=== PATIENT | male | born 1945 | race Caucasian/White ===

== ENCOUNTER 2017-09-15 08:49 | Outpatient (CLI) | payer MEDICARE, BC ==
[2017-09-15 10:26] LABS: #Basophils 0.1 thou/uL (0.0-0.2); #Eosinphils 0.1 thou/uL (0.0-0.7); #Monocytes 0.8 thou/uL (0.11-0.59); #Neutrophils 4.3 thou/uL (1.40-6.50); %Eosinophils 1.8 % (0.0-10.0); %Lymphocytes 27.3 % (21.0-51.0); %Monocytes 10.5 % (0.0-10.0); Hematocrit 52.2 % (42.0-52.0); Mean Platelet Volume 6.5 fL (7.4-10.4); Red Blood Cell (RBC) Count 5.94 mill/uL (4.70-6.10); White Blood Cell (WBC) Count 7.2 thou/uL (4.8-10.8)
[2017-09-15 10:42] LABS: ALT (SGPT) 15 U/L (8-55); AST (SGOT) 16 U/L (5-34); Alkaline Phosphatase 110 U/L (40-150); Anion Gap 14 mmol/L (10-20); BUN (Urea Nitrogen) 22 mg/dL (8.4-25.7); Bilirubin, Direct 0.2 mg/dL (0.1-0.3); Bilirubin, Total 0.5 mg/dL (0.2-1.2); Calc. Creatinine Clearance 0 mL/min (70-130); Calcium 9.6 mg/dL (7.8-10.44); Carbon Dioxide 22 mmol/L (23-31); Chloride 106 mmol/L (98-107); Estimated GFR-MDRD 51; Globulin 2.8 g/dL (2.4-3.5); Protein, Total 6.7 g/dL (5.8-8.1)
== END 2017-09-15 08:50 | disposition home or self-care (01) ==
LOC: LABBT 08:49
PROVIDERS: ATTEND Surgery
DX: Z01.818 Encounter for other preprocedural examination (principal); K80.20 Calculus of gallbladder without cholecystitis without obstruction
CPT/HCPCS: 80053; 80076; 85025; 93005; 93010

== ENCOUNTER 2017-09-17 06:01 | Day surgery (SDC) | payer MEDICARE, BC ==
[2017-09-15 09:18] VITALS: BMI 34.9
[2017-09-17] MEDS ORDERED: Levofloxacin 500 mg/D5W 100 ml Premix Bag ONE (06:33)
[2017-09-17] MEDS ORDERED: Lidocaine 2% w/Epinephrine 1:200K 20 ML VIAL ONE (06:45)
[2017-09-17] MEDS ORDERED: Bupivacaine 0.25% HCL 30 ML VIAL ONE (06:45)
[2017-09-17] MEDS ORDERED: Midazolam HCl 2 mg/2 ml Vial ONE (06:55)
[2017-09-17] MEDS ORDERED: Fentanyl 100 MCG/2 ML VIAL ONE ×2 (06:55→09:01)
[2017-09-17] MEDS ORDERED: Ondansetron HCl/PF 4 MG/2 ML Vial ONE (07:34)
[2017-09-17] MEDS ORDERED: Lidocaine 1% PF 5 ML VIAL ONE (07:34)
[2017-09-17] MEDS ORDERED: Ketorolac Tromethamine 30 MG/ML VIAL ONE (07:34)
[2017-09-17] MEDS ORDERED: Glycopyrrolate 0.2 MG/ML 5 ML SYRINGE ONE (07:34)
[2017-09-17] MEDS ORDERED: PHENYLEPHRINE-NS 100 MCG/ML 10 ML SYRINGE ONE (07:34)
[2017-09-17] MEDS ORDERED: Propofol 200 MG/20 ML VIAL ONE (07:34)
--- NOTE | 2017-09-17 08:42 | OP ---
DATE OF PROCEDURE: 09/17/2017 PREOPERATIVE DIAGNOSIS: Symptomatic cholelithiasis. SURGEON: Hiren Whitley M.D. PROCEDURE PERFORMED: Laparoscopic cholecystectomy. INDICATIONS: A 72-year-old male who has been having episodic right upper quadrant pain radiating to the back associated with nausea. Ultrasound showed cholelithiasis. FINDINGS: He had a large amount of visceral adipose making this difficult. The cystic duct was of small caliber. PROCEDURE: After informed consent was obtained, the patient was taken to the operating room and giv en general endotracheal anesthesia. He was placed in the supine position. His abdomen was prepped and draped in the usual fashion. Local anesthesia infiltrated subcutaneously and deep. A subumbili monika incision was performed. The subcu divided sharply. The fascia was grasped and two stay sutures of 0 Vicryl placed to either side of midline. Midline incised. Digital palpation revealed no loca l adhesions. A blunt 10/12 mm trocar inserted. Pneumoperitoneum was created to a pressure of 15 m mHg. A 0 degree laparoscope inserted. Under direct vision, three 5 mm ports placed subcostally. Th e gallbladder was grasped and advanced superiorly. The peritoneum lysed distally to dissect out the cystic duct and cystic artery and the critical view. The duct was triply ligated with Hemoclips an d divided. The artery triply ligated with Hemoclips and divided. The gallbladder was removed from its fossa utilizing electrocautery. The gallbladder was removed from the abdomen through the umbili monika port. Hemostasis assured with electrocautery. Trocars and retractors removed. The fascia clos ed with interrupted 0 Vicryl suture. Skin closed with interrupted 4-0 Rapide. Dermabond applied. The patient tolerated the procedure well and transferred to recovery in good condition. Sponge and needle count verified correct x2.
[2017-09-17] MEDS ORDERED: HYDROcodone/Acetaminophen 5/325 mg Tablet ONE (09:57)
== END 2017-09-17 10:30 | disposition home or self-care (01) ==
LOC: SDC 06:01
PROVIDERS: ATTEND Surgery
PROC: 0FT44ZZ Resection of Gallbladder, Percutaneous Endoscopic Approach (ICD-10-PCS; principal; 2017-09-17)
DX: K80.11 Calculus of gallbladder with chronic cholecystitis with obstruction (principal); E11.9 Type 2 diabetes mellitus without complications; E78.00 Pure hypercholesterolemia, unspecified; F41.9 Anxiety disorder, unspecified; I25.10 Atherosclerotic heart disease of native coronary artery without angina pectoris; I10 Essential (primary) hypertension; Z79.4 Long term (current) use of insulin; Z79.02 Long term (current) use of antithrombotics/antiplatelets; Z79.899 Other long term (current) drug therapy; Z88.6 Allergy status to analgesic agent; Z88.0 Allergy status to penicillin; Z97.14 Presence of artificial left leg (complete) (partial); Z95.1 Presence of aortocoronary bypass graft; Z90.49 Acquired absence of other specified parts of digestive tract; Z89.512 Acquired absence of left leg below knee; Z98.890 Other specified postprocedural states; Z87.891 Personal history of nicotine dependence; Z86.19 Personal history of other infectious and parasitic diseases
CPT/HCPCS: 88304; 96374; J1885; J1956; J2001; J2250; J2405; J2704; J3010; S0020

== ENCOUNTER 2018-06-07 10:12 | Emergency (ER) | payer MEDICARE, BC ==
[2018-06-07] MEDS ORDERED: Morphine 4 MG/ML VIAL ONE (10:21)
[2018-06-07] MEDS ORDERED: Ondansetron HCl/PF 4 MG/2 ML Vial ONE (10:21)
[2018-06-07 10:46] LABS: #Eosinphils 0.1 thou/uL (0.0-0.7); #Lymphocytes 1.9 thou/uL (1.20-3.40); #Monocytes 0.6 thou/uL (0.11-0.59); #Neutrophils 3.5 thou/uL (1.40-6.50); %Basophils 0.7 % (0.0-1.0); %Eosinophils 2.1 % (0.0-10.0); %Lymphocytes 29.9 % (21.0-51.0); %Monocytes 10.1 % (0.0-10.0); %Neutrophils 57.1 % (42.0-75.0); Hemoglobin 16.1 g/dL (14.0-18.0); Mean Corpuscular HGB CONC 35.4 g/dL (32.0-36.0); Mean Corpuscular Hemoglobin 30.8 pg (27.0-31.0); Mean Platelet Volume 6.5 fL (7.4-10.4); Platelet Count 184 thou/uL (130-400); RBC Distribution Width 12.4 % (11.5-14.5); Red Blood Cell (RBC) Count 5.21 mill/uL (4.70-6.10); White Blood Cell (WBC) Count 6.2 thou/uL (4.8-10.8)
[2018-06-07 10:59] LABS: Bilirubin Negative (Negative); Blood, Urine Negative (Negative); Glucose, Urine (Dipstick) Negative (Negative); Leukocyte Negative (Negative); Nitrite Negative (Negative); Protein, Urine (Dipstick) Negative (Neg-Trace); Urobilinogen 0.2 mg/dL (0.2-1.0)
[2018-06-07 11:07] LABS: Clarity CLEAR (Clear)
[2018-06-07 11:07] LABS: ALT (SGPT) 11 U/L (8-55); AST (SGOT) 15 U/L (5-34); Albumin 3.9 g/dL (3.4-4.8); Alkaline Phosphatase 108 U/L (40-150); Anion Gap 11 mmol/L (10-20); BUN (Urea Nitrogen) 14 mg/dL (8.4-25.7); Bilirubin, Total 0.5 mg/dL (0.2-1.2); Calc. Creatinine Clearance 0 mL/min (70-130); Carbon Dioxide 24 mmol/L (23-31); Chloride 107 mmol/L (98-107); Estimated GFR-MDRD 53; Globulin 2.9 g/dL (2.4-3.5); Glucose 148 mg/dL (83-110); Potassium 4.4 mmol/L (3.5-5.1); Protein, Total 6.8 g/dL (5.8-8.1); Sodium 138 mmol/L (136-145)
--- NOTE | 2018-06-07 12:22 | CT ---
CT ABDOMEN AND PELVIS NONCONTRAST: INDICATION: Abdominal pain. FINDINGS: There is abnormal mesenteric haziness of the central abdomen with associated enlarged lymph nodes. T his does approximate the body of the pancreas. There is a stippled calcific density at the region of the pancreatic head which may reside within the ductal system. Evidence of prior cholecystectomy. There is no urolithiasis or obstructive uropathy. Colonic diverticulosis is present. There is scatt ered vascular disease. Scarring and/or volume loss is present at the visualized lung bases. There i s scattered osseous degenerative change as well as demineralization. There is a small hiatal hernia. IMPRESSION: 1. Abnormal hazy mesentery with associated adenopathy. The haziness does approximate the pancreatic body. Primary considerations include mesenteric panniculitis or lymphomatous process. The possibil ity of associated pancreatitis is not excluded given the proximal to the pancreas. Correlate with pa ncreatic enzyme values. 2. There is punctate multifocal calcific density at the proximal aspect of the pancreas surrounded b y hypodensity which may, therefore, relate to ductal calculi. Gastroenterology consultation may prov e useful for further evaluation. 3. Colonic diverticulosis. POS: [facility]
== END 2018-06-07 13:21 | disposition home or self-care (01) ==
LOC: ERS 10:12
DX: R10.9 Unspecified abdominal pain (principal); R29.898 Other symptoms and signs involving the musculoskeletal system; I25.10 Atherosclerotic heart disease of native coronary artery without angina pectoris; E11.9 Type 2 diabetes mellitus without complications; E78.5 Hyperlipidemia, unspecified; I10 Essential (primary) hypertension; Z87.891 Personal history of nicotine dependence; Z79.899 Other long term (current) drug therapy
CPT/HCPCS: 74176; 80053; 81003; 83690; 85025; 96374; 96375; J2270; J2405

== ENCOUNTER 2018-06-17 08:12 | Outpatient (CLI) | payer MEDICARE, BC ==
--- NOTE | 2018-06-17 10:55 | MRI ---
MRI ABDOMEN WITH AND WITHOUT CONTRAST: Date: 06/17/18 HISTORY: Abnormal CT scan. COMPARISON: CT dated 06/07/18. FINDINGS: MRI abdomen and pelvis performed prior to and after the intravenous administration of contrast. 3D re ndering provided. There is mild hepatic steatosis with fat percentage of 6.9%. There is no intrahepatic or extrahepatic biliary dilatation. There is a diverticulum in the second po rtion of the duodenum, which gave the abnormal finding on the recent CT examination. No dilatation of the main pancreatic duct. No annular pancreas. No abnormal hyper or hypoenhancing mass in the pancre as. There is mild edema and adenopathy in the proximal small bowel mesentery, which is nonspecific and ma y be chronic in nature from chronic inflammation. Spleen is unremarkable. No adenopathy. Multiple bilateral nonenhancing T2 hyperintense renal foci. Background marrow signal of the spine is normal. No dilated loops of bowel. IMPRESSION: 1. Corresponding to the recent CT examination is a second portion of the duodenum diverticulum. No i ntrahepatic or extrahepatic biliary dilatation. No choledocholithiasis. 2. Abnormal inflammation and adenopathy of the proximal small bowel mesentery. Differential is uncha nged from the recent CT exam and includes chronic inflammation, lymphomatous involvement, and scleros ing mesenteritis. POS: [facility]
== END 2018-06-17 08:13 | disposition home or self-care (01) ==
LOC: MRI 08:12
PROVIDERS: ATTEND Internal Medicine Gastroenterology
DX: K21.9 Gastro-esophageal reflux disease without esophagitis (principal); F40.240 Claustrophobia; M54.9 Dorsalgia, unspecified; R59.0 Localized enlarged lymph nodes; R93.5 Abnormal findings on diagnostic imaging of other abdominal regions, including retroperitoneum; Z86.010 Personal history of colon polyps
CPT/HCPCS: 74183

== ENCOUNTER 2023-12-16 08:43 | Outpatient (CLI) | payer MEDICARE, BC ==
[2023-12-16] MEDS ORDERED: Iopamidol 370 76% 100 ML VIAL ONE (10:03)
== END 2023-12-16 08:44 | disposition home or self-care (01) ==
LOC: BICCT 08:43
PROVIDERS: ATTEND Family Medicine
DX: R59.9 Enlarged lymph nodes, unspecified (principal); E04.1 Nontoxic single thyroid nodule
CPT/HCPCS: 71260

== ENCOUNTER 2023-12-29 10:10 | Outpatient (CLI) | payer MEDICARE, BC ==
[2023-12-29] MEDS ORDERED: Iopamidol-370 76% 500 ML MDV (1 ML CHARGE) ONE (10:59)
== END 2023-12-29 10:11 | disposition home or self-care (01) ==
LOC: BICCT 10:10
PROVIDERS: ATTEND Family Medicine
DX: R59.0 Localized enlarged lymph nodes (principal); I70.0 Atherosclerosis of aorta; K57.10 Diverticulosis of small intestine without perforation or abscess without bleeding; M47.816 Spondylosis without myelopathy or radiculopathy, lumbar region
CPT/HCPCS: 74177

== ENCOUNTER → 2024-01-09 | Outpatient (CLI) | payer MEDICARE, BC | LOC: PET 08:00 | PROVIDERS: ATTEND Internal Medicine | DX: R59.0 Localized enlarged lymph nodes (principal); K11.8 Other diseases of salivary glands | CPT/HCPCS: 78815; A9552 ==

== ENCOUNTER → 2024-01-21 | Day surgery (SDC) | payer MEDICARE, BC ==
[~2024-01-21] MED LIST: GASTROGRAFIN 30 ML BOT ONE
[2024-01-21 08:17] LABS: #Basophils 0.1 thou/uL (0.0-0.2); #Monocytes 0.8 thou/uL (0.11-0.59); #Neutrophils 4.4 thou/uL (1.40-6.50); %Basophils 0.9 % (0.0-1.0); %Lymphocytes 28.5 % (21.0-51.0); %Monocytes 11.1 % (0.0-10.0); %Neutrophils 59.2 % (42.0-75.0); Hematocrit 48.9 % (42.0-52.0); Hemoglobin 16.4 g/dL (14.0-18.0); Mean Corpuscular HGB CONC 33.5 g/dL (32.0-36.0); Mean Corpuscular Hemoglobin 28.6 pg (27.0-31.0); Mean Corpuscular Volume 85.3 fl (78.0-98.0); Mean Platelet Volume 8.8 fL (7.4-10.4); Platelet Count 167 10x3/uL (130-400); RBC Distribution Width 13.1 % (11.5-14.5); Red Blood Cell (RBC) Count 5.73 mill/uL (4.70-6.10); White Blood Cell (WBC) Count 7.5 10x3/uL (4.8-10.8)
[2024-01-21 08:32] LABS: INR-International Normal Ratio 1.1; PTT 27.9 sec (22.9-36.1); Prothrombin Time 14.1 sec (12.0-14.7)
== END ==
LOC: CT 06:53
PROVIDERS: ATTEND Internal Medicine
PROC: 07BB3ZX Excision of Mesenteric Lymphatic, Percutaneous Approach, Diagnostic (ICD-10-PCS; principal; 2024-01-21)
DX: C82.13 Follicular lymphoma grade II, intra-abdominal lymph nodes (principal); R59.0 Localized enlarged lymph nodes; E11.9 Type 2 diabetes mellitus without complications; I10 Essential (primary) hypertension; I25.10 Atherosclerotic heart disease of native coronary artery without angina pectoris; E78.5 Hyperlipidemia, unspecified; Z88.0 Allergy status to penicillin; Z88.8 Allergy status to other drugs, medicaments and biological substances; Z87.891 Personal history of nicotine dependence
CPT/HCPCS: 49180; 77012; 85025; 85610; 85730; 88184; 88185; 88307; 88333; 88334; 88341; 88342; Q9963

== ENCOUNTER 2024-11-04 13:00 | Outpatient (CLI) | payer MEDICARE, BC | END 2024-11-04 13:01 | disposition home or self-care (01) | LOC: BICCT 13:00 | PROVIDERS: ATTEND Internal Medicine | DX: C82.91 Follicular lymphoma, unspecified, lymph nodes of head, face, and neck (principal); R59.0 Localized enlarged lymph nodes; R91.8 Other nonspecific abnormal finding of lung field; E04.2 Nontoxic multinodular goiter | CPT/HCPCS: 71260; 74177 ==

== ENCOUNTER 2024-11-05 11:11 | Emergency (ER) | payer MEDICARE, BC ==
[2024-11-05 11:50] LABS: #Basophils 0.15 10x3/uL (0.0-0.2); #Eosinophils Less than 0.03 10x3/uL (0.0-0.7); %Lymphocytes 7.2 % (21.0-51.0); %Monocytes 9.9 % (0.0-10.0); %Neutrophils 81.4 % (42.0-75.0); Hematocrit 41.6 % (42.0-52.0); Hemoglobin 13.2 g/dL (14.0-18.0); Mean Corpuscular HGB CONC 31.7 g/dL (32.0-36.0); Mean Corpuscular Hemoglobin 24.5 pg (27.0-31.0); Mean Corpuscular Volume 77.2 fL (78.0-98.0); Mean Platelet Volume 8.8 fL (7.4-10.4); Platelet Count 388 10x3/uL (130-400); RBC Distribution Width 15.5 % (11.5-14.5); Red Blood Cell (RBC) Count 5.39 mill/uL (4.70-6.10)
[2024-11-05 12:25] LABS: Troponin I Less than 0.010 ng/mL (< 0.028)
[2024-11-05 12:26] LABS: ALT (SGPT) 19 U/L (8-55); AST (SGOT) 37 U/L (5-34); Albumin 1.7 g/dL (3.4-4.8); Alkaline Phosphatase 211 U/L (40-110); Anion Gap 16 mmol/L (10-20); BUN (Urea Nitrogen) 14 mg/dL (8.4-25.7); Bilirubin, Total 0.6 mg/dL (0.2-1.2); Calc. Creatinine Clearance 0 mL/min (70-130); Calcium 8.9 mg/dL (7.8-10.44); Carbon Dioxide 24 mmol/L (23-31); Chloride 97 mmol/L (98-107); Estimated GFR 69; Globulin 4.8 g/dL (2.4-3.5); Glucose 201 mg/dL (83-110); Potassium 4.9 mmol/L (3.5-5.1); Protein, Total 6.5 g/dL (5.8-8.1); Sodium 132 mmol/L (136-145)
== END 2024-11-05 15:31 | disposition home or self-care (01) ==
LOC: ERS 11:11
DX: L03.115 Cellulitis of right lower limb (principal); E11.9 Type 2 diabetes mellitus without complications; I10 Essential (primary) hypertension; Z87.891 Personal history of nicotine dependence
CPT/HCPCS: 36415; 71045; 80053; 83880; 84484; 85025; 93005

== ENCOUNTER 2024-11-08 23:59 | Inpatient (IN) | payer MEDICARE, BC ==
[2024-11-09 00:35] LABS: #Basophils 0.12 10x3/uL (0.0-0.2); #Eosinophils Less than 0.03 10x3/uL (0.0-0.7); %Basophils 0.7 % (0.0-1.0); %Lymphocytes 6.4 % (21.0-51.0); %Monocytes 9.3 % (0.0-10.0); %Neutrophils 82.9 % (42.0-75.0); Hematocrit 36.2 % (42.0-52.0); Mean Corpuscular HGB CONC 33.1 g/dL (32.0-36.0); Mean Corpuscular Hemoglobin 24.4 pg (27.0-31.0); Mean Corpuscular Volume 73.6 fL (78.0-98.0); Mean Platelet Volume 8.9 fL (7.4-10.4); Platelet Count 346 10x3/uL (130-400); RBC Distribution Width 15.4 % (11.5-14.5); Red Blood Cell (RBC) Count 4.92 mill/uL (4.70-6.10)
[2024-11-09 00:41] LABS: ALT (SGPT) 14 U/L (8-55); AST (SGOT) 36 U/L (5-34); Albumin 1.6 g/dL (3.4-4.8); Alkaline Phosphatase 205 U/L (40-110); Anion Gap 18 mmol/L (10-20); BUN (Urea Nitrogen) 27 mg/dL (8.4-25.7); Bilirubin, Total 0.5 mg/dL (0.2-1.2); Calc. Creatinine Clearance 0 mL/min (70-130); Calcium 8.5 mg/dL (7.8-10.44); Carbon Dioxide 18 mmol/L (23-31); Chloride 95 mmol/L (98-107); Estimated GFR 48; Globulin 4.7 g/dL (2.4-3.5); Glucose 134 mg/dL (83-110); Potassium 5.2 mmol/L (3.5-5.1); Protein, Total 6.3 g/dL (5.8-8.1); Sodium 126 mmol/L (136-145)
[2024-11-09 01:01] LABS: Magnesium 2.3 mg/dL (1.6-2.6)
[2024-11-09 01:06] LABS: Troponin I Less than 0.010 ng/mL (< 0.028)
[2024-11-09 03:15] LABS: Bacteria/HPF None Seen HPF (None Seen); Bilirubin Negative (Negative); Blood, Urine Negative (Negative); CAUTI Indications for Culture Alt mental st,lethar; Clarity Clear (Clear); Glucose, Urine (Dipstick) Greater than 1000 mg/dL (Negative); Ketone, Urine Negative (Negative); Leukocyte Negative Leu/uL (Negative); Nitrite Negative (Negative); Protein, Urine (Dipstick) 10 mg/dL (Neg-Trace); RBC/HPF 0-3 HPF (0-3); Specific Gravity, Urine 1.009 (1.002-1.036); Squamous Epithelial 0-3 HPF (0-3); WBC/HPF 0-3 HPF (0-3); pH, Urine 5.5 (5.0-9.0)
[2024-11-09 03:21] LABS: Urine Culture Reflex No No
[2024-11-09] MEDS ORDERED: Sodium Chloride 0.9% 100 ML ONE (05:48)
[2024-11-09] MEDS ORDERED: cefTRIAXone (ROCEPHIN) 1 GM VIAL ONE (05:49)
[2024-11-09] MEDS ORDERED: Acetaminophen 325 MG TAB PO PRN (07:45)
[2024-11-09] MEDS ORDERED: Ondansetron PF 4 MG/2 ML Vial IVP PRN (07:45)
[2024-11-09] MEDS ORDERED: Ondansetron ODT 4 MG TAB SL PRN (07:45)
[2024-11-09] MEDS ORDERED: Dextrose 50% Abboject 50 ML SYRINGE SLOW IVP PRN (08:58)
[2024-11-09] MEDS ORDERED: Glucagon 1 MG/ML KIT IM PRN (08:58)
[2024-11-09] MEDS ORDERED: Insulin Regular, Human 100 UNIT/ML 10 ML VIAL SC PRN ×2 (08:58)
[2024-11-09] MEDS ORDERED: Dextrose 5% in Water 1,000 ML IV PRN (08:58)
[2024-11-09 09:28] VITALS: BMI 28.4
[2024-11-09 09:46] LABS: Anion Gap 15 mmol/L (10-20); BUN (Urea Nitrogen) 26 mg/dL (8.4-25.7); Calc. Creatinine Clearance 53 mL/min (70-130); Calcium 8.1 mg/dL (7.8-10.44); Carbon Dioxide 21 mmol/L (23-31); Chloride 99 mmol/L (98-107); Estimated GFR 52; Glucose 115 mg/dL (83-110); Potassium 4.8 mmol/L (3.5-5.1); Sodium 130 mmol/L (136-145)
[2024-11-09] MEDS: Sodium Chloride 0.9% 500 ML IV SCH (11:32)
[2024-11-09 11:35] VITALS: TEMP 97.9
[2024-11-09] MEDS: Clopidogrel Bisulfate 75 MG TAB PO SCH (13:05)
[2024-11-09 15:41] LABS: Anion Gap 13 mmol/L (10-20); BUN (Urea Nitrogen) 26 mg/dL (8.4-25.7); Calc. Creatinine Clearance 50 mL/min (70-130); Carbon Dioxide 20 mmol/L (23-31); Chloride 100 mmol/L (98-107); Estimated GFR 49; Glucose 133 mg/dL (83-110); Potassium 4.7 mmol/L (3.5-5.1); Sodium 128 mmol/L (136-145)
[2024-11-09 15:55] VITALS: BP 91/52
[2024-11-09] MEDS ORDERED: Megestrol Acetate 40 MG TAB PO SCH (21:00)
[2024-11-09] MEDS ORDERED: Gemfibrozil 600 MG TAB PO SCH (21:00)
[2024-11-10] MEDS ORDERED: Bisoprolol Fumarate 5 MG TAB PO SCH (09:00)
[2024-11-10] MEDS ORDERED: Dapagliflozin Propanediol 10 MG TAB PO SCH (09:00)
[2024-11-10] MEDS ORDERED: INSULIN DEGLUDEC 200 UNIT/ML SQ SCH (09:00)
[2024-11-10] MEDS ORDERED: ALPRAZolam 0.5 MG TAB PO SCH (09:00)
[2024-11-10] MEDS ORDERED: Non-Formulary Item 1 EACH (Bisoprolol Fumarate [Bisoprolol Fumarate] 10 MG Tablet) PO SCH (09:00)
[2024-11-10] MEDS ORDERED: Insulin Glargine 30 UNITS/0.3 ML VIAL SC SCH (09:00)
[2024-11-11 12:58] LABS: Anion Gap 16 mmol/L (10-20); BUN (Urea Nitrogen) 20 mg/dL (8.4-25.7); Calc. Creatinine Clearance 54 mL/min (70-130); Calcium 8.5 mg/dL (7.8-10.44); Carbon Dioxide 21 mmol/L (23-31); Chloride 98 mmol/L (98-107); Estimated GFR 54; Glucose 159 mg/dL (83-110); Potassium 4.9 mmol/L (3.5-5.1); Sodium 130 mmol/L (136-145)
== END 2024-11-09 18:22 | disposition home or self-care (01) | DRG 641 ==
LOC: ERS 23:59 → T4-B 11-09 06:10
PROVIDERS: ADMIT Internal Medicine; ATTEND Internal Medicine
DX: E87.1 Hypo-osmolality and hyponatremia (principal); C82.90 Follicular lymphoma, unspecified, unspecified site; L03.115 Cellulitis of right lower limb; E78.5 Hyperlipidemia, unspecified; I10 Essential (primary) hypertension; E11.9 Type 2 diabetes mellitus without complications; I25.10 Atherosclerotic heart disease of native coronary artery without angina pectoris; Z95.1 Presence of aortocoronary bypass graft; Z90.49 Acquired absence of other specified parts of digestive tract; Z87.891 Personal history of nicotine dependence; Z88.0 Allergy status to penicillin; Z88.8 Allergy status to other drugs, medicaments and biological substances; Z79.899 Other long term (current) drug therapy; Z79.02 Long term (current) use of antithrombotics/antiplatelets; Z79.2 Long term (current) use of antibiotics
CPT/HCPCS: 36415; 36416; 80048; 80053; 81001; 82533; 83605; 83615; 83735; 83930; 83935; 84300; 84443; 84484; 84550; 85025; 87040; 87428; 93005; 96361; 96374; J0696; J7030

== ENCOUNTER 2024-11-15 11:41 | Inpatient (IN) | payer MEDICARE, BC ==
[2024-11-15 12:59] LABS: #Basophils 0.12 10x3/uL (0.0-0.2); #Eosinophils Less than 0.03 10x3/uL (0.0-0.7); %Basophils 0.6 % (0.0-1.0); %Lymphocytes 3.3 % (21.0-51.0); %Monocytes 8.2 % (0.0-10.0); %Neutrophils 87.1 % (42.0-75.0); Hematocrit 33.7 % (42.0-52.0); Mean Corpuscular HGB CONC 32.6 g/dL (32.0-36.0); Mean Corpuscular Hemoglobin 24.3 pg (27.0-31.0); Mean Corpuscular Volume 74.6 fL (78.0-98.0); Mean Platelet Volume 8.6 fL (7.4-10.4); Platelet Count 327 10x3/uL (130-400); RBC Distribution Width 16.2 % (11.5-14.5); Red Blood Cell (RBC) Count 4.52 mill/uL (4.70-6.10)
[2024-11-15 13:56] LABS: ALT (SGPT) 15 U/L (8-55); AST (SGOT) 44 U/L (5-34); Albumin 1.4 g/dL (3.4-4.8); Alkaline Phosphatase 200 U/L (40-110); Anion Gap 15 mmol/L (10-20); BUN (Urea Nitrogen) 22 mg/dL (8.4-25.7); Bilirubin, Total 0.8 mg/dL (0.2-1.2); Calc. Creatinine Clearance 0 mL/min (70-130); Calcium 8.3 mg/dL (7.8-10.44); Carbon Dioxide 21 mmol/L (23-31); Chloride 98 mmol/L (98-107); Estimated GFR 63; Globulin 4.4 g/dL (2.4-3.5); Glucose 160 mg/dL (83-110); Magnesium 2.2 mg/dL (1.6-2.6); Protein, Total 5.8 g/dL (5.8-8.1); Sodium 129 mmol/L (136-145)
[2024-11-15] MEDS ORDERED: Ondansetron PF 4 MG/2 ML Vial IVP PRN (16:00)
[2024-11-15] MEDS ORDERED: Dextrose 50% Abboject 50 ML SYRINGE SLOW IVP PRN (16:00)
[2024-11-15] MEDS ORDERED: Glucagon 1 MG/ML KIT IM PRN (16:00)
[2024-11-15] MEDS ORDERED: Acetaminophen 325 MG TAB PO PRN (16:00)
[2024-11-15] MEDS ORDERED: Dextrose 5% in Water 1,000 ML IV PRN (16:00)
[2024-11-15] MEDS ORDERED: Bisacodyl 5 MG TAB PO PRN (16:00)
[2024-11-15] MEDS ORDERED: traMADol HCl 50 MG TAB PO PRN ×2 (16:00)
[2024-11-15] MEDS: Albumin 25% 25 GM (100 mL) BOT IVPB SCH ×2 (17:53→21:19)
[2024-11-15 18:22] VITALS: BMI 33.1
[2024-11-15] MEDS: Dronabinol 2.5 MG CAP PO SCH (18:30)
[2024-11-15] MEDS: Gemfibrozil 600 MG TAB PO SCH (21:19)
[2024-11-16] MEDS: Zolpidem Tartrate 5 MG TAB PO SCH ×2 (00:03→20:50)
[2024-11-16 05:34] LABS: Anion Gap 17 mmol/L (10-20); BUN (Urea Nitrogen) 18 mg/dL (8.4-25.7); Calc. Creatinine Clearance 77 mL/min (70-130); Calcium 8.4 mg/dL (7.8-10.44); Carbon Dioxide 17 mmol/L (23-31); Chloride 102 mmol/L (98-107); Estimated GFR 68; Glucose 124 mg/dL (83-110); Potassium 4.6 mmol/L (3.5-5.1); Sodium 131 mmol/L (136-145)
[2024-11-16 06:05] LABS: Hematocrit 28.7 % (42.0-52.0); Hemoglobin 9.5 g/dL (14.0-18.0); Mean Corpuscular HGB CONC 33.1 g/dL (32.0-36.0); Mean Corpuscular Hemoglobin 24.2 pg (27.0-31.0); Mean Corpuscular Volume 73.2 fL (78.0-98.0); Mean Platelet Volume 8.8 fL (7.4-10.4); Platelet Count 321 10x3/uL (130-400); RBC Distribution Width 16.2 % (11.5-14.5); Red Blood Cell (RBC) Count 3.92 mill/uL (4.70-6.10)
[2024-11-16 06:20] LABS: #Basophils 0.08 10x3/uL (0.0-0.2); #Eosinophils Less than 0.03 10x3/uL (0.0-0.7); %Basophils 0.5 % (0.0-1.0); %Lymphocytes 4.4 % (21.0-51.0); %Monocytes 8.7 % (0.0-10.0); %Neutrophils 85.5 % (42.0-75.0)
[2024-11-16 06:50] LABS: Band 14 % (5-11); Lymphocytes 1 % (21-51); Microcytosis SLIGHT = 6-15 cells HPF (0-5); Monocytes 8 % (0-10); Neutrophil 76 % (42-75); Platelet Adequacy Comment Platelets Normal; Polychromasia SLIGHT = 2-3 cells HPF (0-2)
[2024-11-16] MEDS ORDERED: Megestrol Acetate 40 MG TAB PO SCH (09:00)
[2024-11-16] MEDS: Sodium Bicarbonate Tab 325 MG TAB PO SCH (09:02)
[2024-11-16] MEDS: Megestrol Acetate 800 MG/20 ML UDCUP PO SCH (09:02)
[2024-11-16] MEDS: Rosuvastatin 10 MG TAB PO SCH (09:02)
[2024-11-16] MEDS: Cholecalciferol 1,000 UNITS (25 MCG) TAB PO SCH (09:03)
[2024-11-16] MEDS: CO Q-10 CAPSULE 100 MG PO SCH (09:03)
[2024-11-16] MEDS: Venlafaxine XR 37.5 MG CAP PO SCH (09:03)
[2024-11-16] MEDS: Enoxaparin 40 MG (0.4 mL) SYRINGE SC SCH (09:03)
[2024-11-16] MEDS: Dapagliflozin Propanediol 10 MG TAB PO SCH (09:04)
[2024-11-16] MEDS: ALPRAZolam 0.5 MG TAB PO SCH ×2 (09:05→20:51)
[2024-11-16 10:03] VITALS: BMI 33.1
[2024-11-16] MEDS ORDERED: Loperamide HCl 2 MG CAP PO PRN (16:28)
[2024-11-16] MEDS ORDERED: Electrolyte Replacement Protocol FS PRN ×2 (18:45→21:57)
[2024-11-16] MEDS: Mirtazapine 15 MG TAB PO SCH (20:50)
[2024-11-16] MEDS: Electrolyte Replacement Protocol 1 EACH FS ONE (21:58)
[2024-11-17 09:01] LABS: Hematocrit 29.7 % (42.0-52.0); Hemoglobin 9.8 g/dL (14.0-18.0); Mean Corpuscular Hemoglobin 24.2 pg (27.0-31.0); Mean Corpuscular Volume 73.3 fL (78.0-98.0); Mean Platelet Volume 8.5 fL (7.4-10.4); Platelet Count 283 10x3/uL (130-400); RBC Distribution Width 16.3 % (11.5-14.5); Red Blood Cell (RBC) Count 4.05 mill/uL (4.70-6.10)
[2024-11-17 09:07] LABS: ALT (SGPT) 12 U/L (8-55); AST (SGOT) 33 U/L (5-34); Albumin 2.3 g/dL (3.4-4.8); Alkaline Phosphatase 162 U/L (40-110); Anion Gap 16 mmol/L (10-20); BUN (Urea Nitrogen) 14 mg/dL (8.4-25.7); Bilirubin, Total 1.1 mg/dL (0.2-1.2); Calc. Creatinine Clearance 83 mL/min (70-130); Calcium 8.6 mg/dL (7.8-10.44); Carbon Dioxide 18 mmol/L (23-31); Chloride 102 mmol/L (98-107); Estimated GFR 75; Globulin 3.4 g/dL (2.4-3.5); Glucose 168 mg/dL (83-110); Iron Less than 7 ug/dL (65-175); Iron Binding Capacity, Total 94 mcg/dL (261-462); Potassium 4.1 mmol/L (3.5-5.1); Protein, Total 5.7 g/dL (5.8-8.1); Sodium 132 mmol/L (136-145)
[2024-11-17 09:29] LABS: Macrocytosis SLIGHT = 6-15 cells HPF (0-5); Platelet Adequacy Comment Platelets Normal; Polychromasia SLIGHT = 2-3 cells HPF (0-2)
[2024-11-17 09:32] LABS: #Eosinophils Less than 0.03 10x3/uL (0.0-0.7); %Basophils 0.7 % (0.0-1.0); %Lymphocytes 4.2 % (21.0-51.0); %Monocytes 11.8 % (0.0-10.0); %Neutrophils 82.6 % (42.0-75.0)
[2024-11-17] MEDS: Albumin 25% 25 GM (100 mL) BOT IVPB SCH ×2 (10:08→13:52)
[2024-11-17] MEDS: Sodium Ferric Gluconate 250 MG in Sodium Chloride 0.9% 250 ML 250 ML IVPB SCH (11:26)
[2024-11-17] MEDS: Sodium Bicarbonate Tab 325 MG TAB PO SCH (13:52)
[2024-11-17] MEDS: Insulin Lispro 100 UNIT/ML 10 ML VIAL SC PRN (16:56)
[2024-11-18] MEDS ORDERED: Bisoprolol Fumarate 5 MG TAB PO SCH ×2 (07:45→09:00)
[2024-11-18 08:28] VITALS: BP 168/68; TEMP 98.3
== END 2024-11-18 08:10 | disposition home or self-care (01) | DRG 640 ==
LOC: ERS 11:41 → MSONC 16:46 → OBSVTOIN 11-16 16:21
PROVIDERS: ADMIT Internal Medicine; ATTEND Internal Medicine
DX: E87.1 Hypo-osmolality and hyponatremia (principal); E43 Unspecified severe protein-calorie malnutrition; C82.90 Follicular lymphoma, unspecified, unspecified site; E87.20 Acidosis, unspecified; F41.9 Anxiety disorder, unspecified; E78.5 Hyperlipidemia, unspecified; E11.22 Type 2 diabetes mellitus with diabetic chronic kidney disease; I12.9 Hypertensive chronic kidney disease with stage 1 through stage 4 chronic kidney disease, or unspecified chronic kidney disease; E86.9 Volume depletion, unspecified; I25.10 Atherosclerotic heart disease of native coronary artery without angina pectoris; D63.1 Anemia in chronic kidney disease; E88.09 Other disorders of plasma-protein metabolism, not elsewhere classified; N18.30 Chronic kidney disease, stage 3 unspecified; Z88.0 Allergy status to penicillin; Z79.899 Other long term (current) drug therapy; Z90.49 Acquired absence of other specified parts of digestive tract
CPT/HCPCS: 36415; 36416; 71045; 78815; 80048; 80053; 82728; 83540; 83550; 83615; 83735; 83930; 83935; 84100; 84443; 84550; 85025; 93005; 96360; 96361; 96372; 96374; 96376; A9552; G0378; J1650; J1815; J2916; J7050; P9047; Q0167

== ENCOUNTER 2024-11-18 08:45 | Outpatient (CLI) | payer MEDICARE, BC | END 2024-11-18 08:46 | disposition home or self-care (01) | LOC: PET 08:45 | PROVIDERS: ATTEND Internal Medicine | DX: C82.91 Follicular lymphoma, unspecified, lymph nodes of head, face, and neck (principal); R59.0 Localized enlarged lymph nodes; K76.9 Liver disease, unspecified; M89.9 Disorder of bone, unspecified; Z79.899 Other long term (current) drug therapy | CPT/HCPCS: 78815; A9552; 80053 ==

== ENCOUNTER 2024-11-28 11:11 | Inpatient (IN) | payer MEDICARE, BC ==
[2024-11-28 13:05] LABS: Actual Bicarbonate (HCO3v) 15.5 mEq/L (22-28); Base Excess -6.3 mEq/L (-2.0 to +3.0); Chloride (VBG) 88 mmol/L (98-106); Hematocrit-VBG 32 % (42.0-52.0); Hemoglobin (Hb) 10.9 g/dL (12.6-17.4); Potassium (VBG) 4.19 mmol/L (3.70-5.30)
[2024-11-28 13:07] LABS: Calcium, Ionized (venous) 0.77 mmol/L (1.16-1.32); Sodium 118 mmol/L (133-146)
[2024-11-28 13:30] LABS: ALT (SGPT) 14 U/L (8-55); AST (SGOT) 51 U/L (5-34); Albumin 1.6 g/dL (3.4-4.8); Alkaline Phosphatase 377 U/L (40-110); Anion Gap 24 mmol/L (10-20); BUN (Urea Nitrogen) 110 mg/dL (8.4-25.7); Bilirubin, Total 1.1 mg/dL (0.2-1.2); Calc. Creatinine Clearance 0 mL/min (70-130); Calcium 7.8 mg/dL (7.8-10.44); Carbon Dioxide 16 mmol/L (23-31); Chloride 87 mmol/L (98-107); Estimated GFR 19; Globulin 4.3 g/dL (2.4-3.5); Glucose 204 mg/dL (83-110); Magnesium 2.3 mg/dL (1.6-2.6); Potassium 4.3 mmol/L (3.5-5.1); Protein, Total 5.9 g/dL (5.8-8.1); Sodium 123 mmol/L (136-145)
[2024-11-28 13:49] LABS: Hematocrit 28.7 % (42.0-52.0); Hemoglobin 9.2 g/dL (14.0-18.0); Mean Corpuscular HGB CONC 32.1 g/dL (32.0-36.0); Mean Corpuscular Hemoglobin 23.4 pg (27.0-31.0); Mean Corpuscular Volume 72.8 fL (78.0-98.0); Mean Platelet Volume 9.3 fL (7.4-10.4); Platelet Count 250 10x3/uL (130-400); RBC Distribution Width 18.9 % (11.5-14.5); Red Blood Cell (RBC) Count 3.94 mill/uL (4.70-6.10)
[2024-11-28 14:10] LABS: Band 7 % (5-11); Eosinophils 1 % (0-10); Hypochromia SLIGHT = 6-15 cells HPF (0-5); Microcytosis SLIGHT = 6-15 cells HPF (0-5); Monocytes 1 % (0-10); Neutrophil 90 % (42-75); Nucleated RBC (Manual Ct) 1 % (0); Platelet Adequacy Comment Platelets Normal; Polychromasia MODERATE = 3-4 cells HPF (0-2); Reactive Lymphocytes 1 % (0-10); Target Cells SLIGHT = 2-5 cells HPF (0-1)
[2024-11-28 14:11] LABS: Reflex for Review?? YES
[2024-11-28 15:29] LABS: Bacteria/HPF None Seen HPF (None Seen); Bilirubin Negative (Negative); Blood, Urine Negative (Negative); CAUTI Indications for Culture Pelvic or flank pain; Clarity Extra Turbid (Clear); Glucose, Urine (Dipstick) 300 mg/dL (Negative); Ketone, Urine Negative (Negative); Leukocyte 25 Leu/uL (Negative); Nitrite Negative (Negative); Protein, Urine (Dipstick) 50 mg/dL (Neg-Trace); Specific Gravity, Urine 1.018 (1.002-1.036); Urobilinogen 3 mg/dL (Less than 2)
[2024-11-28 15:36] LABS: Urine Culture Reflex Yes Yes
[2024-11-28] MEDS ORDERED: Acetaminophen 650 MG Suppository PR PRN (16:45)
[2024-11-28] MEDS ORDERED: Senokot S 8.6-50 MG TAB PO PRN (16:45)
[2024-11-28] MEDS ORDERED: Acetaminophen 325 MG TAB PO PRN (16:45)
[2024-11-28] MEDS ORDERED: Bisacodyl 10 MG SUPP PR PRN (16:45)
[2024-11-28] MEDS ORDERED: Bisacodyl 5 MG TAB PO PRN (16:45)
[2024-11-28] MEDS ORDERED: Ondansetron PF 4 MG/2 ML Vial IVP PRN (16:45)
[2024-11-28] MEDS ORDERED: traMADol HCl 50 MG TAB PO PRN (17:38)
[2024-11-28] MEDS ORDERED: Albumin 25% 100 ML ONE (18:24)
[2024-11-28] MEDS: Albumin 25% 25 GM (100 mL) BOT IVPB SCH (18:31)
[2024-11-28] MEDS: Sodium Bicarbonate 150 MEQ in Dextrose 5% in Water 1,000 ML IV SCH (18:46)
[2024-11-28] MEDS: ALPRAZolam 0.5 MG TAB PO SCH (18:56)
[2024-11-28 19:41] LABS: CK (CPK) 21 U/L (30-200); Phosphorus 6.1 mg/dL (2.3-4.7); Uric Acid 8.8 mg/dL (3.5-7.2)
[2024-11-28 19:51] LABS: Creatinine, Urine 145.08 mg/dL (22-328)
[2024-11-28 19:52] LABS: Sodium, Urine Less than 20 mmol/L (Not Available); Urea Nitrogen, Random Urine 345 mg/dl
[2024-11-28] MEDS ORDERED: Heparin 5,000 UNITS/ML VIAL SC SCH (21:00)
[2024-11-28] MEDS: Famotidine/PF 20 mg/2ml Vial SLOW IVP SCH (21:35)
[2024-11-29 05:08] LABS: Hematocrit 27.6 % (42.0-52.0); Hemoglobin 8.9 g/dL (14.0-18.0); Mean Corpuscular HGB CONC 32.2 g/dL (32.0-36.0); Mean Corpuscular Hemoglobin 23.7 pg (27.0-31.0); Mean Corpuscular Volume 73.4 fL (78.0-98.0); Mean Platelet Volume 9.6 fL (7.4-10.4); Platelet Count 267 10x3/uL (130-400); RBC Distribution Width 19.2 % (11.5-14.5); Red Blood Cell (RBC) Count 3.76 mill/uL (4.70-6.10)
[2024-11-29 05:43] LABS: Anisocytosis SLIGHT = 6-15 cells HPF (0-5); Band 4 % (5-11); Burr Cells SLIGHT = 2-5 cells HPF (0-1); Hypochromia SLIGHT = 6-15 cells HPF (0-5); Microcytosis SLIGHT = 6-15 cells HPF (0-5); Neutrophil 95 % (42-75); Platelet Adequacy Comment Platelets Normal; Polychromasia SLIGHT = 2-3 cells HPF (0-2)
[2024-11-29 06:11] LABS: Anion Gap 22 mmol/L (10-20); BUN (Urea Nitrogen) 109 mg/dL (8.4-25.7); Calc. Creatinine Clearance 25 mL/min (70-130); Calcium 7.3 mg/dL (7.8-10.44); Carbon Dioxide 18 mmol/L (23-31); Chloride 88 mmol/L (98-107); Estimated GFR 18; Glucose 220 mg/dL (83-110); Magnesium 2.2 mg/dL (1.6-2.6); Potassium 3.9 mmol/L (3.5-5.1); Sodium 124 mmol/L (136-145)
[2024-11-29 06:18] LABS: ALT (SGPT) 13 U/L (8-55); AST (SGOT) 53 U/L (5-34); Albumin 2.2 g/dL (3.4-4.8); Alkaline Phosphatase 357 U/L (40-110); Bilirubin, Direct 0.8 mg/dL (0.1-0.3); Bilirubin, Total 1.1 mg/dL (0.2-1.2); Protein, Total 5.9 g/dL (5.8-8.1)
[2024-11-29] MEDS ORDERED: Sodium Bicarbonate 150 MEQ in Dextrose 5% in Water 1,000 ML IV SCH (07:00)
[2024-11-29] MEDS: Venlafaxine XR 37.5 MG CAP PO SCH (09:45)
[2024-11-29] MEDS: Rosuvastatin 10 MG TAB PO SCH (09:45)
[2024-11-29] MEDS: CO Q-10 CAPSULE 100 MG PO SCH (09:45)
[2024-11-29] MEDS: FLU (Fluad Triv) TS24-25 (65UP)/MF59C/PF 45 MCG/0.5 ML Syringe IM ONE (12:47)
[2024-11-29] MEDS: ALPRAZolam 0.5 MG TAB PO SCH (12:47)
[2024-11-29] MEDS: Sodium Bicarbonate 150 MEQ in Sterile Water 1,000 ML IV SCH (13:11)
[2024-11-29] MEDS: Febuxostat 40 MG TAB PO SCH (13:12)
[2024-11-29 14:56] LABS: Platelet Count 240 10x3/uL (130-400)
[2024-11-29 15:18] LABS: Fibrinogen 512 mg/dL (253-463)
[2024-11-29 15:19] LABS: INR-International Normal Ratio 1.5; PTT 35.9 sec (22.9-36.1); Prothrombin Time 17.8 sec (12.0-14.7)
[2024-11-29 15:27] LABS: D-Dimer Test 5.27 mcg/mL (0.27-0.43)
[2024-11-29] MEDS: Midodrine HCl 5 MG TAB PO SCH ×2 (18:32→20:29)
[2024-11-29] MEDS: Albumin 25% 25 GM (100 mL) BOT IVPB SCH (18:32)
[2024-11-29] MEDS ORDERED: EPINEPHrine 1 MG/10 ML Abboject SYRINGE ONE (22:48)
[2024-11-29] MEDS ORDERED: Calcium Chloride 1 GM/10 ML Abboject SYRINGE ONE (22:48)
[2024-11-29] MEDS ORDERED: Atropine Sulfate 1 mg/10 ml Syringe ONE (22:48)
[2024-11-29] MEDS ORDERED: Sodium Bicarb 50 MEQ/50 ML Abboject 8.4% SYRINGE ONE (22:48)
[2024-11-29 23:25] LABS: Base Excess (BEa) -15.2 mEq/L (-2.0 to +3.0); CO2 Tension 46.8 mmHg (35.0-45.0); Calcium, Ionized (arterial) 1.04 mmol/L (1.12-1.30); Carboxyhemoglobin (COHb) 0.6 gm% (0.0-3.0); Hematocrit-ABG 28 % (42.0-52.0); Hemoglobin (Hb) 9.5 g/dL (14.0-18.0); O2 Tension (PaO2), arterial 105.1 mmHg (> 70.0); Potassium - ABG Lab 3.96 mmol/L (3.70-5.30)
[2024-11-29 23:27] LABS: Actual Bicarbonate (HCO3a) 13.9 mEq/L (22-28)
[2024-11-29 23:28] LABS: Puncture Site Left Brachial artery
[2024-11-29] MEDS ORDERED: Insulin Lispro 100 UNIT/ML 10 ML VIAL SC PRN (23:35)
[2024-11-29] MEDS ORDERED: Glucagon 1 MG/ML KIT IM PRN (23:35)
[2024-11-29] MEDS ORDERED: Dextrose 50% Abboject 50 ML SYRINGE SLOW IVP PRN (23:35)
[2024-11-29] MEDS ORDERED: Dextrose 5% in Water 1,000 ML IV PRN (23:35)
[2024-11-29] MEDS ORDERED: DISCONTINUE PREVIOUS NARCOTIC PAIN MEDICATIONS AND BENZODIAZEPINES FS SCH (23:45)
[2024-11-29] MEDS ORDERED: Morphine 2 MG/ML VIAL SLOW IVP PRN (23:45)
[2024-11-29] MEDS ORDERED: Fentanyl BOLUS 250 ML IVPB PRN (23:45)
[2024-11-29] MEDS ORDERED: Propofol BOLUS 1,000 MG/100 ML VIAL IV PRN (23:45)
[2024-11-29] MEDS: Sodium Bicarb 50 MEQ/50 ML Abboject 8.4% SYRINGE IVP SCH (23:50)
[2024-11-30] LABS: Lactic Acid 9.87 mmol/L (0.5-2.2)
[2024-11-30 00:02] LABS: ALT (SGPT) 18 U/L (8-55); AST (SGOT) 74 U/L (5-34); Albumin 2.7 g/dL (3.4-4.8); Alkaline Phosphatase 345 U/L (40-110); Anion Gap 30 mmol/L (10-20); BUN (Urea Nitrogen) 111 mg/dL (8.4-25.7); Bilirubin, Total 1.3 mg/dL (0.2-1.2); Calc. Creatinine Clearance 22 mL/min (70-130); Calcium 7.9 mg/dL (7.8-10.44); Carbon Dioxide 15 mmol/L (23-31); Chloride 84 mmol/L (98-107); Estimated GFR 16; Globulin 3.5 g/dL (2.4-3.5); Glucose 256 mg/dL (83-110); Magnesium 2.6 mg/dL (1.6-2.6); Potassium 4.3 mmol/L (3.5-5.1); Protein, Total 6.2 g/dL (5.8-8.1); Sodium 125 mmol/L (136-145)
[2024-11-30] MEDS: NOREPINEPHRINE 8 MG/250 ML-D5W 250 ML ONE (00:05)
[2024-11-30] MEDS: Fentanyl CADD 100 ML IV SCH (00:05)
[2024-11-30 00:06] LABS: Troponin I 0.099 ng/mL (< 0.028)
[2024-11-30 00:07] LABS: Phosphorus 8.6 mg/dL (2.3-4.7)
[2024-11-30 00:12] LABS: Base Excess (BEa) -7.2 mEq/L (-2.0 to +3.0); CO2 Tension 41.2 mmHg (35.0-45.0); Calcium, Ionized (arterial) 0.95 mmol/L (1.12-1.30); Carboxyhemoglobin (COHb) 1.3 gm% (0.0-3.0); Hematocrit-ABG 26 % (42.0-52.0); O2 Tension (PaO2), arterial 128.9 mmHg (> 70.0); Potassium - ABG Lab 3.67 mmol/L (3.70-5.30); Puncture Site Left Brachial artery; pH, Arterial 7.282 (7.35-7.45)
[2024-11-30] MEDS: DOBUTamine 500 mg/250 ml 250 ML ONE (00:15)
[2024-11-30] MEDS: Sodium Bicarb 50 MEQ/50 ML Abboject 8.4% SYRINGE ONE (00:16)
[2024-11-30] MEDS: Propofol 1,000 MG/100 ML VIAL IV ONE (00:16)
[2024-11-30] MEDS: Albumin 25% 25 GM (100 mL) BOT IVPB SCH ×2 (00:17→00:48)
[2024-11-30] MEDS: Ventilator Sedation Protocol 1 EACH FS ONE (00:18)
[2024-11-30] MEDS: Lorazepam 2 MG/ML VIAL SLOW IVP PRN (00:22)
[2024-11-30 00:31] LABS: Hematocrit 28.5 % (42.0-52.0); Mean Corpuscular HGB CONC 31.6 g/dL (32.0-36.0); Mean Corpuscular Hemoglobin 23.8 pg (27.0-31.0); Mean Corpuscular Volume 75.4 fL (78.0-98.0); Mean Platelet Volume 9.7 fL (7.4-10.4); Platelet Count 314 10x3/uL (130-400); RBC Distribution Width 19.9 % (11.5-14.5); Red Blood Cell (RBC) Count 3.78 mill/uL (4.70-6.10)
[2024-11-30] MEDS ORDERED: Vasopressin 20 UNITS in Sodium Chloride 0.9% 50 ML IV SCH (00:45)
[2024-11-30] MEDS: Vasopressin In 0.9 % NaCl 40 UNIT in Premix 1 BAG IV SCH (00:47)
[2024-11-30 00:55] LABS: Anisocytosis MODERATE=16-30 cells HPF (0-5); Band 11 % (5-11); Lymphocytes 5 % (21-51); Macrocytosis SLIGHT = 6-15 cells HPF (0-5); Monocytes 2 % (0-10); Neutrophil 79 % (42-75); Nucleated RBC (Manual Ct) 2 % (0); Platelet Adequacy Comment Platelets Normal; Polychromasia MODERATE = 3-4 cells HPF (0-2); Reactive Lymphocytes 2 % (0-10)
[2024-11-30] MEDS ORDERED: EPINEPHrine 4 MG in Dextrose 5% in Water 250 ML IV SCH (01:00)
[2024-11-30 03:31] LABS: Actual Bicarbonate (HCO3v) 18.7 mEq/L (22-28); Base Excess -7.9 mEq/L (-2.0 to +3.0); Calcium, Ionized (venous) 0.89 mmol/L (1.16-1.32); Chloride (VBG) 83 mmol/L (98-106); Hematocrit-VBG 29 % (42.0-52.0); Hemoglobin (Hb) 9.7 g/dL (12.6-17.4); Potassium (VBG) 4.09 mmol/L (3.70-5.30); Sodium 124 mmol/L (133-146); pH (venous) 7.262 (7.32-7.43)
[2024-11-30 03:51] LABS: Phosphorus 7.1 mg/dL (2.3-4.7)
[2024-11-30 03:54] LABS: Anion Gap 32 mmol/L (10-20); BUN (Urea Nitrogen) 106 mg/dL (8.4-25.7); Calc. Creatinine Clearance 21 mL/min (70-130); Calcium 7.3 mg/dL (7.8-10.44); Carbon Dioxide 17 mmol/L (23-31); Chloride 81 mmol/L (98-107); Estimated GFR 15; Glucose 296 mg/dL (83-110); Iron 21 ug/dL (65-175); Iron 22 ug/dL (65-175); Iron Binding Capacity, Total 81 mcg/dL (261-462); Magnesium 2.4 mg/dL (1.6-2.6); Potassium 4.2 mmol/L (3.5-5.1); Sodium 126 mmol/L (136-145); Uric Acid 9.3 mg/dL (3.5-7.2)
[2024-11-30 03:57] LABS: Lactic Acid 6.77 mmol/L (0.5-2.2)
[2024-11-30] MEDS: Insulin Lispro 100 UNIT/ML 10 ML VIAL SC PRN ×3 (04:03→17:29)
[2024-11-30 04:28] LABS: Hematocrit 26.6 % (42.0-52.0); Hemoglobin 8.5 g/dL (14.0-18.0); Mean Corpuscular Hemoglobin 23.5 pg (27.0-31.0); Mean Corpuscular Volume 73.7 fL (78.0-98.0); Mean Platelet Volume 9.5 fL (7.4-10.4); Platelet Count 269 10x3/uL (130-400); RBC Distribution Width 19.4 % (11.5-14.5); Red Blood Cell (RBC) Count 3.61 mill/uL (4.70-6.10)
[2024-11-30 04:49] LABS: Thyroid Stimulating Hormone 1.7529 uIU/mL (0.35-4.94)
[2024-11-30] MEDS: NOREPINEPHRINE 8 MG/250 ML-D5W 250 ML IVPB SCH (05:16)
[2024-11-30 05:27] LABS: Ferritin 4727.28 ng/mL (22-322)
[2024-11-30 06:45] LABS: Anisocytosis SLIGHT = 6-15 cells HPF (0-5); Band 9 % (5-11); Hypochromia SLIGHT = 6-15 cells HPF (0-5); Macrocytosis SLIGHT = 6-15 cells HPF (0-5); Metamyelocyte 1 % (0-0); Microcytosis SLIGHT = 6-15 cells HPF (0-5); Monocytes 2 % (0-10); Neutrophil 86 % (42-75); Platelet Adequacy Comment Platelets Normal; Polychromasia SLIGHT = 2-3 cells HPF (0-2); Reactive Lymphocytes 2 % (0-10); Target Cells SLIGHT = 2-5 cells HPF (0-1)
[2024-11-30 07:25] LABS: Base Excess (BEa) -5.7 mEq/L (-2.0 to +3.0); CO2 Tension 33.9 mmHg (35.0-45.0); Calcium, Ionized (arterial) 0.93 mmol/L (1.12-1.30); Carboxyhemoglobin (COHb) 0.5 gm% (0.0-3.0); Hematocrit-ABG 26 % (42.0-52.0); Hemoglobin (Hb) 8.8 g/dL (14.0-18.0); O2 Tension (PaO2), arterial 68.5 mmHg (> 70.0); Potassium - ABG Lab 3.96 mmol/L (3.70-5.30); pH, Arterial 7.366 (7.35-7.45)
[2024-11-30 07:29] LABS: ALV-art Gradient 316.925 mmHg (0-20); Puncture Site Right Radial artery
[2024-11-30] MEDS ORDERED: Senokot S 8.6-50 MG TAB PER TUBE PRN (09:18)
[2024-11-30] MEDS ORDERED: Acetaminophen 325 MG TAB PER TUBE PRN (09:18)
[2024-11-30] MEDS: Sodium Bicarbonate 150 MEQ in Sterile Water 1,000 ML IV SCH (09:19)
[2024-11-30] MEDS: CO Q-10 CAPSULE 100 MG PER TUBE SCH (10:03)
[2024-11-30] MEDS: Rosuvastatin 10 MG TAB PER TUBE SCH (10:03)
[2024-11-30] MEDS ORDERED: Clindamycin/D5W 900 MG in Premix 1 BAG IVPB SCH (12:00)
[2024-11-30] MEDS ORDERED: Dextrose 5% in Water 1,000 ML IV PRN (12:45)
[2024-11-30] MEDS ORDERED: INSULIN REGULAR IN 0.9 % NACL 100 ML IVPB SCH ×3 (12:45→18:45)
[2024-11-30] MEDS ORDERED: Glucagon 1 MG/ML KIT IM PRN (12:45)
[2024-11-30 14:01] LABS: Sodium 125 mmol/L (136-145); Uric Acid 5.3 mg/dL (3.5-7.2)
[2024-11-30] MEDS: Midodrine HCl 5 MG TAB PER TUBE SCH (14:21)
[2024-11-30] MEDS ORDERED: EPINEPHrine 1 MG/ML VIAL ONE (15:49)
[2024-11-30] MEDS ORDERED: Bupivacaine 0.25% HCL 30 ML VIAL ONE (15:49)
[2024-11-30] MEDS ORDERED: Lidocaine 2% PF 5 ML VIAL ONE (15:50)
[2024-11-30] MEDS: Pantoprazole 40 MG VIAL IVP SCH (16:23)
[2024-11-30] MEDS ORDERED: Insulin Lispro 100 UNIT/ML 10 ML VIAL SC PRN (16:42)
[2024-11-30] MEDS ORDERED: Clindamycin/D5W 900 mg/50 ml Premix Bag ONE (17:37)
[2024-11-30] MEDS ORDERED: Rocuronium Bromide 10 MG/ML (10ML VIAL) ONE (17:45)
[2024-11-30 18:10] LABS: Albumin 2.9 g/dL (3.4-4.8); Anion Gap 27 mmol/L (10-20); BUN (Urea Nitrogen) 110 mg/dL (8.4-25.7); BUN/Creatinine Ratio 28.42; Calc. Creatinine Clearance 0 mL/min (70-130); Calcium 6.8 mg/dL (7.8-10.44); Carbon Dioxide 23 mmol/L (23-31); Chloride 81 mmol/L (98-107); Estimated GFR 15; Glucose 298 mg/dL (83-110); Phosphorus 5.2 mg/dL (2.3-4.7); Potassium 3.7 mmol/L (3.5-5.1); Sodium 127 mmol/L (136-145)
[2024-11-30] MEDS ORDERED: Dextrose 5 %-0.45 % NaCl 1,000 ML IV PRN (18:42)
[2024-11-30] MEDS ORDERED: D5 1/2 NS w/20 mEq KCL 1,000 ML IV PRN (18:42)
[2024-11-30] MEDS ORDERED: Dextrose 50% Abboject 50 ML SYRINGE SLOW IVP PRN (18:42)
[2024-11-30] MEDS ORDERED: NS 0.9% w/ 20 MEQ KCL 1,000 ML IV PRN ×2 (18:42)
[2024-11-30] MEDS ORDERED: Sodium Chloride 0.9% 1,000 ML IV PRN ×4 (18:42)
[2024-11-30 19:29] LABS: Anion Gap 24 mmol/L (10-20); BUN (Urea Nitrogen) 116 mg/dL (8.4-25.7); Calc. Creatinine Clearance 0 mL/min (70-130); Calcium 6.4 mg/dL (7.8-10.44); Carbon Dioxide 23 mmol/L (23-31); Chloride 80 mmol/L (98-107); Estimated GFR 15; Glucose 295 mg/dL (83-110); Potassium 3.4 mmol/L (3.5-5.1); Sodium 124 mmol/L (136-145)
[2024-11-30] MEDS: Calcium Gluc 4.6 MEQ/10 ML (100 MG/ML) SLOW IVP SCH (19:32)
[2024-11-30] MEDS: SODIUM CHLORIDE 0.9% IVPB SCH (19:41)
[2024-11-30] MEDS: DEXAMETHASONE SOD PHOSPHATE IVPB SCH (19:41)
[2024-11-30] MEDS: Sodium Chloride 0.9% 1,000 ML IV SCH (20:02)
[2024-11-30 23:47] LABS: Anion Gap 25 mmol/L (10-20); BUN (Urea Nitrogen) 112 mg/dL (8.4-25.7); Calc. Creatinine Clearance 0 mL/min (70-130); Calcium 6.6 mg/dL (7.8-10.44); Carbon Dioxide 23 mmol/L (23-31); Chloride 80 mmol/L (98-107); Estimated GFR 15; Glucose 287 mg/dL (83-110); Potassium 3.4 mmol/L (3.5-5.1); Sodium 125 mmol/L (136-145)
[2024-12-01] MEDS: Electrolyte Replacement Protocol 1 EACH IVPB ONE (00:55)
[2024-12-01 04:10] LABS: Hematocrit 21.6 % (42.0-52.0); Hemoglobin 7.4 g/dL (14.0-18.0); Mean Corpuscular HGB CONC 34.3 g/dL (32.0-36.0); Mean Corpuscular Hemoglobin 23.7 pg (27.0-31.0); Mean Corpuscular Volume 69.2 fL (78.0-98.0); Mean Platelet Volume 9.2 fL (7.4-10.4); Platelet Count 201 10x3/uL (130-400); RBC Distribution Width 18.4 % (11.5-14.5); Red Blood Cell (RBC) Count 3.12 mill/uL (4.70-6.10)
[2024-12-01 04:44] LABS: Phosphorus 4.5 mg/dL (2.3-4.7)
[2024-12-01 04:52] LABS: Anisocytosis SLIGHT = 6-15 cells HPF (0-5); Band 3 % (5-11); Hypochromia SLIGHT = 6-15 cells HPF (0-5); Microcytosis SLIGHT = 6-15 cells HPF (0-5); Monocytes 2 % (0-10); Neutrophil 95 % (42-75); Nucleated RBC (Manual Ct) 1 % (0); Platelet Adequacy Comment Platelets Normal; Polychromasia SLIGHT = 2-3 cells HPF (0-2); Smudge Cells 8.9 %; Target Cells SLIGHT = 2-5 cells HPF (0-1)
[2024-12-01 05:09] LABS: Anion Gap 23 mmol/L (10-20); BUN (Urea Nitrogen) 115 mg/dL (8.4-25.7); Calc. Creatinine Clearance 21 mL/min (70-130); Calcium 6.6 mg/dL (7.8-10.44); Carbon Dioxide 27 mmol/L (23-31); Chloride 79 mmol/L (98-107); Estimated GFR 15; Glucose 248 mg/dL (83-110); Magnesium 2.1 mg/dL (1.6-2.6); Potassium 3.3 mmol/L (3.5-5.1); Sodium 126 mmol/L (136-145); Uric Acid Less than 1.0 mg/dL (3.5-7.2)
[2024-12-01 06:46] LABS: Actual Bicarbonate (HCO3a) 27.7 mEq/L (22-28); CO2 Tension 32.9 mmHg (35.0-45.0); Carboxyhemoglobin (COHb) 1.1 gm% (0.0-3.0); Hematocrit-ABG 23 % (42.0-52.0); Hemoglobin (Hb) 7.8 g/dL (14.0-18.0); O2 Tension (PaO2), arterial 92.1 mmHg (> 70.0); Potassium - ABG Lab 3.32 mmol/L (3.70-5.30); pH, Arterial 7.543 (7.35-7.45)
[2024-12-01 06:47] LABS: Calcium, Ionized (arterial) 0.78 mmol/L (1.12-1.30); Puncture Site Left Radial artery
[2024-12-01 06:48] LABS: ALV-art Gradient 151.975 mmHg (0-20)
[2024-12-01] MEDS: Pantoprazole 40 MG VIAL IVP SCH (08:15)
[2024-12-01] MEDS: Rosuvastatin 10 MG TAB PER TUBE SCH (08:15)
[2024-12-01] MEDS ORDERED: Potassium Chloride 20 MEQ in Premix 1 BAG IVPB SCH (08:45)
[2024-12-01] MEDS: Potassium Chloride 40 MEQ in Premix 1 BAG IVPB SCH (09:20)
[2024-12-01] MEDS: Calcium Chloride 13.6 MEQ in Sodium Chloride 0.9% 100 ML IVPB SCH (09:20)
[2024-12-01] MEDS: SODIUM CHLORIDE 0.9% IVPB SCH (09:21)
[2024-12-01] MEDS: DEXAMETHASONE SOD PHOSPHATE IVPB SCH (09:21)
[2024-12-01] MEDS ORDERED: Heparin 10,000 UNITS/ 10 ML VIAL ONE (09:35)
[2024-12-01] MEDS: CO Q-10 CAPSULE 100 MG PER TUBE SCH (10:17)
[2024-12-01] MEDS: Venlafaxine HCl 25 MG TAB PER TUBE SCH ×2 (11:44→21:31)
[2024-12-01 13:19] LABS: Anion Gap 25 mmol/L (10-20); BUN (Urea Nitrogen) 111 mg/dL (8.4-25.7); Calc. Creatinine Clearance 20 mL/min (70-130); Carbon Dioxide 25 mmol/L (23-31); Chloride 80 mmol/L (98-107); Estimated GFR 14; Glucose 222 mg/dL (83-110); Potassium 4.1 mmol/L (3.5-5.1); Sodium 126 mmol/L (136-145)
[2024-12-01 13:42] LABS: HBSAB Concentration Less than 8.00 mIU/mL; Hep B Core Total Ab NONREACTIVE (NonReactive); Hep B Core Total Index 0.28 S/CO (0-0.79); Hep B Surf AB NONREACTIVE (NonReactive); Hep B Surf Ag NONREACTIVE S/CO (NonReactive); Hep C IgG Ab NONREACTIVE S/CO (NonReactive); Hep C Index 0.19 S/CO (0-0.79)
[2024-12-01 18:00] LABS: HBSAB Concentration Less than 8.00 mIU/mL; HBsAg Index 0.23 S/CO (0-0.99); Hep B Core Total Ab NONREACTIVE (NonReactive); Hep B Core Total Index 0.52 S/CO (0-0.79); Hep B Surf AB NONREACTIVE (NonReactive); Hep B Surf Ag NONREACTIVE S/CO (NonReactive); Hep C IgG Ab NONREACTIVE S/CO (NonReactive); Hep C Index 0.26 S/CO (0-0.79)
[2024-12-01] MEDS: Albumin 25% 25 GM (100 mL) BOT IVPB SCH (20:15)
[2024-12-02] MEDS: Propofol 1,000 MG/100 ML VIAL IV PRN (03:46)
[2024-12-02 05:22] LABS: Hematocrit 22.9 % (42.0-52.0); Hemoglobin 7.4 g/dL (14.0-18.0); Mean Corpuscular HGB CONC 32.3 g/dL (32.0-36.0); Mean Corpuscular Hemoglobin 23.5 pg (27.0-31.0); Mean Corpuscular Volume 72.7 fL (78.0-98.0); Mean Platelet Volume 9.9 fL (7.4-10.4); Platelet Count 167 10x3/uL (130-400); RBC Distribution Width 19.7 % (11.5-14.5); Red Blood Cell (RBC) Count 3.15 mill/uL (4.70-6.10)
[2024-12-02 05:26] LABS: Phosphorus 4.9 mg/dL (2.3-4.7)
[2024-12-02 05:27] LABS: Anion Gap 25 mmol/L (10-20); BUN (Urea Nitrogen) 74 mg/dL (8.4-25.7); Calc. Creatinine Clearance 24 mL/min (70-130); Calcium 7.2 mg/dL (7.8-10.44); Carbon Dioxide 24 mmol/L (23-31); Chloride 88 mmol/L (98-107); Estimated GFR 17; Glucose 172 mg/dL (83-110); Sodium 133 mmol/L (136-145); Uric Acid Less than 1.0 mg/dL (3.5-7.2)
[2024-12-02 07:37] LABS: Anisocytosis SLIGHT = 6-15 cells HPF (0-5); Hypochromia MODERATE=16-30 cells HPF (0-5); Microcytosis SLIGHT = 6-15 cells HPF (0-5); Monocytes 1 % (0-10); Neutrophil 99 % (42-75); Platelet Adequacy Comment Platelets Normal; Polychromasia SLIGHT = 2-3 cells HPF (0-2); Stomatocytes SLIGHT = 2-5 cells HPF (0-1)
[2024-12-02] MEDS ORDERED: Vecuronium 10 MG VIAL IV PRN (08:12)
[2024-12-02] MEDS: Calcium Chloride 13.6 MEQ in Sodium Chloride 0.9% 100 ML IVPB SCH (08:37)
[2024-12-02] MEDS ORDERED: Heparin 10,000 UNITS/ 10 ML VIAL ONE (08:52)
[2024-12-02] MEDS: SYSTANE GEL OPHTH DROPS 10 ML EA EYE PRN (09:30)
[2024-12-02] MEDS: Dexmedetomidine In 0.9 % NaCl 100 ML IV SCH (09:43)
[2024-12-02] MEDS: Albumin 25% 25 GM (100 mL) BOT IVPB SCH ×2 (13:01)
[2024-12-02 14:38] VITALS: BMI 34.1
[2024-12-02] MEDS: Magnesium 2 GM/50 ML(in water) 2 GM in Premix 1 BAG IVPB SCH (17:04)
[2024-12-02] MEDS ORDERED: Metoclopramide HCl 10 MG (2 mL) VIAL IVP SCH (19:45)
[2024-12-02] MEDS: Amiodarone 450 MG in Dextrose 5% in Water 250 ML IVPB SCH (23:11)
[2024-12-03 06:20] VITALS: BMI 34.4
[2024-12-03 06:20] LABS: Hematocrit 23.8 % (42.0-52.0); Hemoglobin 6.9 g/dL (14.0-18.0); Mean Corpuscular Hemoglobin 24.2 pg (27.0-31.0); Mean Corpuscular Volume 83.5 fL (78.0-98.0); Mean Platelet Volume 10.4 fL (7.4-10.4); Platelet Count 191 10x3/uL (130-400); RBC Distribution Width 21.5 % (11.5-14.5); Red Blood Cell (RBC) Count 2.85 mill/uL (4.70-6.10)
[2024-12-03 06:30] LABS: Phosphorus 7.4 mg/dL (2.3-4.7)
[2024-12-03 06:41] LABS: Magnesium 2.5 mg/dL (1.6-2.6); Uric Acid Less than 1.0 mg/dL (3.5-7.2)
[2024-12-03] MEDS: Dextrose 50% Abboject 50 ML SYRINGE SLOW IVP PRN (06:44)
[2024-12-03 06:48] LABS: Band 6 % (5-11); Hypochromia SLIGHT = 6-15 cells HPF (0-5); Monocytes 4 % (0-10); Neutrophil 90 % (42-75); Platelet Adequacy Comment Platelets Normal; Polychromasia SLIGHT = 2-3 cells HPF (0-2)
[2024-12-03 07:01] VITALS: BP 84/42
[2024-12-03] MEDS: Dextrose 5 % And 0.9 % NaCl 1,000 ML IV SCH (08:17)
[2024-12-03 08:33] LABS: ALT (SGPT) 87 U/L (8-55); AST (SGOT) 558 U/L (5-34); Alkaline Phosphatase 506 U/L (40-110); Anion Gap 37 mmol/L (10-20); BUN (Urea Nitrogen) 49 mg/dL (8.4-25.7); Bilirubin, Total 3.9 mg/dL (0.2-1.2); Calc. Creatinine Clearance 26 mL/min (70-130); Carbon Dioxide 8 mmol/L (23-31); Chloride 93 mmol/L (98-107); Estimated GFR 18; Globulin 2.6 g/dL (2.4-3.5); Glucose 48 mg/dL (83-110); Potassium 5.4 mmol/L (3.5-5.1); Protein, Total 5.6 g/dL (5.8-8.1); Sodium 133 mmol/L (136-145)
[2024-12-03] MEDS ORDERED: Morphine 4 MG/ML VIAL SLOW IVP PRN (09:58)
[2024-12-03 12:48] VITALS: TEMP 98.9
== END 2024-12-03 10:05 | disposition expired | DRG 823 ==
LOC: ERS 11:11 → SUATTDRO 11:11 → ERHOLD 16:48 → 2NO 19:41 → CCU 11-29 23:29
PROVIDERS: ADMIT Family Medicine; ATTEND Hospitalist
PROC: 30233J1 Transfusion of Nonautologous Serum Albumin into Peripheral Vein, Percutaneous Approach (ICD-10-PCS; 2024-11-28)
PROC: 4A133R1 Monitoring of Arterial Saturation, Peripheral, Percutaneous Approach (ICD-10-PCS; 2024-11-29)
PROC: 3E033XZ Introduction of Vasopressor into Peripheral Vein, Percutaneous Approach (ICD-10-PCS; 2024-11-29)
PROC: 5A1945Z Respiratory Ventilation, 24-96 Consecutive Hours (ICD-10-PCS; 2024-11-29)
PROC: 0JH63WZ Insertion of Totally Implantable Vascular Access Device into Chest Subcutaneous Tissue and Fascia, Percutaneous Approach (ICD-10-PCS; principal; 2024-11-30)
PROC: 02HV33Z Insertion of Infusion Device into Superior Vena Cava, Percutaneous Approach (ICD-10-PCS; 2024-11-30)
PROC: B5181ZA Fluoroscopy of Superior Vena Cava using Low Osmolar Contrast, Guidance (ICD-10-PCS; 2024-11-30)
PROC: 07B20ZX Excision of Left Neck Lymphatic, Open Approach, Diagnostic (ICD-10-PCS; 2024-11-30)
PROC: 06HY33Z Insertion of Infusion Device into Lower Vein, Percutaneous Approach (ICD-10-PCS; 2024-12-01)
DX: C82.91 Follicular lymphoma, unspecified, lymph nodes of head, face, and neck (principal); E88.3 Tumor lysis syndrome; G93.41 Metabolic encephalopathy; J96.01 Acute respiratory failure with hypoxia; N17.0 Acute kidney failure with tubular necrosis; R57.9 Shock, unspecified; E87.1 Hypo-osmolality and hyponatremia; E87.20 Acidosis, unspecified; E46 Unspecified protein-calorie malnutrition; R18.0 Malignant ascites; E86.0 Dehydration; R00.1 Bradycardia, unspecified; I46.9 Cardiac arrest, cause unspecified; I25.10 Atherosclerotic heart disease of native coronary artery without angina pectoris; D50.9 Iron deficiency anemia, unspecified; N18.30 Chronic kidney disease, stage 3 unspecified; E11.22 Type 2 diabetes mellitus with diabetic chronic kidney disease; I12.9 Hypertensive chronic kidney disease with stage 1 through stage 4 chronic kidney disease, or unspecified chronic kidney disease; Z66 Do not resuscitate; Z88.0 Allergy status to penicillin; E78.00 Pure hypercholesterolemia, unspecified; Z90.49 Acquired absence of other specified parts of digestive tract; Z95.1 Presence of aortocoronary bypass graft; Z98.890 Other specified postprocedural states; Z87.891 Personal history of nicotine dependence; Z89.512 Acquired absence of left leg below knee; E87.6 Hypokalemia; Z51.5 Encounter for palliative care; D63.1 Anemia in chronic kidney disease
CPT/HCPCS: 36415; 36416; 36600; 70450; 71045; 71250; 76770; 80048; 80053; 80076; 81001; 82010; 82040; 82310; 82550; 82570; 82728; 82805; 83036; 83540; 83550; 83605; 83615; 83735; 83880; 84100; 84300; 84443; 84484; 84540; 84550; 85025; 85049; 85060; 85300; 85362; 85384; 85610; 85730; 86704; 86706; 86803; 87086; 87340; 87428; 88184; 88185; 88189; 88307; 88341; 88342; 88365; 90935; 93005; 93010; 93306; 94002; 94003; 96360; 96361; A4217; C1788; G0257; J0171; J0282; J0461; J0612; J0665; J1100; J1642; J1644; J1815; J2060; J2470; J2704; J2783; J3010; J3475; J3480; J3490; J7030; J7042; J7070; J7999; P9047